=== PATIENT | male | born 1970 | race Caucasian/White ===

== ENCOUNTER 2024-06-08 06:00 | Day surgery (SDC) | payer OTHER ==
[~2024-06-08] VITALS: Ht 188 cm; Wt 100.0 kg
[2024-06-08] MEDS ORDERED: ALLO300T2 PO (06:49)
[2024-06-08] MEDS ORDERED: QUET100T34 PO (06:49)
[2024-06-08] MEDS ORDERED: BECL10.62 PO (06:49)
[2024-06-08] MEDS ORDERED: FAMO20TA8 PO (06:49)
[2024-06-08] MEDS ORDERED: THIA100T92 PO (06:49)
[2024-06-08] MEDS ORDERED: DIPH-1237 PO (06:49)
[2024-06-08] MEDS ORDERED: ACET-66 PO (06:49)
[2024-06-08] MEDS ORDERED: ATOR20TA65 PO (06:49)
[2024-06-08] MEDS ORDERED: CHOL500013 PO (06:49)
[2024-06-08] MEDS ORDERED: PROM118S5 PO (06:49)
[2024-06-08] MEDS ORDERED: MONT-40 PO (06:49)
[2024-06-08] MEDS ORDERED: TAMS0.4C94 PO (06:49)
[2024-06-08] MEDS ORDERED: ALBU18HF12 NASAL (06:49)
[2024-06-08] MEDS ORDERED: UMEC1DIS IH (06:49)
[2024-06-08] MEDS ORDERED: OLAN15TA98 PO (06:49)
[2024-06-08] MEDS ORDERED: SODIUM CHLORIDE 0.9% 1,000 ML ONE (07:07)
[2024-06-08] MEDS: SODIUM CHLORIDE 0.9% 1,000 ML IV ONE (07:45)
[2024-06-08] MEDS ORDERED: FentaNYL CITRATE PF 100 MCG/2 ML VIAL ONE (08:31)
[2024-06-08] MEDS ORDERED: MIDAZOLAM HCL 2 MG/2 ML VIAL ONE (08:31)
[2024-06-08 08:40] VITALS: PULSE 72; RESP 20; O2SAT 100
[2024-06-08] MEDS ORDERED: MethylPREDNISolone SOD SUCC 125 MG/2 ML VIAL ONE (09:41)
[2024-06-08] MEDS: MethylPREDNISolone SOD SUCC 125 MG/2 ML VIAL IVP ONE (09:48)
[2024-06-08] MEDS ORDERED: LIDOCAINE 2% 11 ML JELLY TP ONE (12:00)
[2024-06-08] MEDS ORDERED: BENZOCAINE 20% 50 MCG/SPRAY 57 GM TP ONE (12:00)
[2024-06-08] MEDS ORDERED: LIDOCAINE 4% 50 ML SOLUTION TP ONE (12:00)
== END 2024-06-08 12:30 | disposition left against medical advice (07) ==
LOC: SURGERY 06:00
PROVIDERS: ATTEND Internal Medicine Critical Care Medicine
DX: R05.3 Chronic cough (principal); R06.2 Wheezing; R49.0 Dysphonia; R91.8 Other nonspecific abnormal finding of lung field; J47.9 Bronchiectasis, uncomplicated; J38.4 Edema of larynx; B37.0 Candidal stomatitis
CPT/HCPCS: 31623; 87206; 87101; 87220; 87070; 88108; 31624; 71045; 87015; J3010; J2250; J2919; J7030; Z7610